=== PATIENT | female | born 1990 | race Caucasian/White ===

== ENCOUNTER 2019-10-28 12:49 | Emergency (ER) | payer OTHER ==
[~2019-10-28] VITALS: Ht 180.3 cm; Wt 119.8 kg
[~2019-10-28 12:49] MED LIST: IBUP-1222 PO
[2019-10-28 12:52] VITALS: BP 151/95
--- NOTE | 2019-10-28 13:01 | NUR ---
AMBULATORY TO & FROM [facility] W/OUT INCIDENT; GAIT STEADY. VOIDED SPECIMEN PROVIDED.
--- NOTE | 2019-10-28 13:05 | NUR ---
PT STATES "I THINK MY PERIOD JUST STARTED". PT CHOOSING NOT TO STAY FOR EXAM.
== END 2019-10-28 13:13 | disposition left against medical advice (07) ==
LOC: ED 13:12
DX: N92.6 Irregular menstruation, unspecified (principal); Z53.21 Procedure and treatment not carried out due to patient leaving prior to being seen by health care provider